=== PATIENT | female | born 1945 | race Asian ===

== ENCOUNTER 2020-05-07 05:54 | Inpatient (IN) | payer MEDICAID ==
[2020-05-03 10:39] LABS: APPEARANCE,URINE CLEAR; BILIRUBIN, URINE NEGATIVE (NEGATIVE); COLOR,URINE PALE YELLOW; GLUCOSE, URINE (UA) NEGATIVE (NEGATIVE); KETONES,URINE NEGATIVE (NEGATIVE); LEUKOCYTE ESTERASE ,URINE 1+ (NEGATIVE); NITRITE,URINE NEGATIVE (NEGATIVE); PH,URINE 5 (4.5-8.0); PROTEIN,URINE NEGATIVE (NEGATIVE); UROBILINOGEN,URINE NORMAL MG/DL (0.0-1.0)
[2020-05-03 10:49] LABS: BASOPHILS % (AUTO) 0.8 % (0.0-2.0); EOSINOPHILS % (AUTO) 2.2 % (0.0-3.0); HEMATOCRIT 44.6 % (37.0-47.0); HEMOGLOBIN 15.7 G/DL (12.0-16.0); LYMPHOCYTES % (AUTO) 46.9 % (20.0-45.0); MEAN CORPUSCULAR VOLUME 92 FL (80-99); NEUTROPHILS % (AUTO) 42.1 % (45.0-75.0); PLATELET COUNT 255 K/UL (150-450); RED BLOOD COUNT 4.85 M/UL (4.20-5.40); WHITE BLOOD COUNT 6.4 K/UL (4.8-10.8)
[2020-05-03 11:05] LABS: ANION GAP 7 mmol/L (5-15); BLOOD UREA NITROGEN 15 mg/dL (7-18); CALCIUM 9.5 MG/DL (8.5-10.1); CARBON DIOXIDE 29 MMOL/L (21-32); CHLORIDE 104 MMOL/L (98-107); CREATININE 0.8 MG/DL (0.55-1.30); POTASSIUM 3.8 MMOL/L (3.5-5.1); SODIUM 139 MMOL/L (136-145)
--- NOTE | 2020-05-03 16:38 | Diagnostic Imaging Report ---
Indication: Cough Technique: One view of the chest Comparison: none Findings: Lungs and pleural spaces are clear. Heart size is normal. There is evidence of prior mid thoracic vertebral augmentation procedures Impression: No acute process
--- NOTE | 2020-05-06 14:15 | Pre-op HX & Phy Repo 2 SIG ---
DATE OF ADMISSION: 05/07/2020 DATE OF SURGERY: Scheduled for surgery May 07, 2020. HISTORY OF PRESENT ILLNESS: The patient is a 74-year-old female in overall stable health, who recently noticed a right breast mass. Imaging revealed a multilobulated mass extending over 7 cm. Multiple core biopsies were performed in March at 9 o'clock of the right breast revealing papillary carcinoma, at 8 o'clock 7 cm from the nipple papillary carcinoma, and at 8 o'clock 4 cm from the nipple papillary carcinoma. The lesion was ER and GA positive, HER2 negative, with KI-67 18%. . She was seen by Medical Oncology, who obtained PET-CT scan, bone scan and breast MRI which were all negative except for the known cancer in the right breast. While she stated she had occasional shortness of breath, it was felt that she should proceed with surgical approach with modified radical mastectomy at this time, and there was no indication for preoperative neoadjuvant chemotherapy. PAST MEDICAL HISTORY/MEDICATIONS: Statin for cholesterol. ALLERGIES: Fish. OPERATIONS: Arm and shoulder surgery. REVIEW OF SYSTEMS: She is nulliparous. PHYSICAL EXAMINATION: GENERAL: The patient is 5 feet 2 inches and 146 pounds. VITAL SIGNS: Stable. HEENT: Within normal limits. LUNGS: Clear. HEART: Regular rhythm. BREASTS: Moderately large and ptotic. The left breast is unremarkable. The right breast has a large 7 to 8 cm central mass, which is not fixed to the underlying chest wall. There is no palpable axillary or supraclavicular lymphadenopathy. ABDOMEN: Soft. PELVIC: Per primary care. RECTAL: Per primary care. EXTREMITIES: Without edema. NEUROLOGIC: Physiologic. IMPRESSION: Locally advanced papillary carcinoma, right breast. PLAN: Right modified radical mastectomy. DISCUSSION: I have had a full discussion with the patient regarding the nature of her condition, the nature of the surgery, indications, alternatives, options, and risks including bleeding, infection, necrosis of flap, need for additional treatment based on final pathology including pathology of the lymph nodes, scarring, distortion of the chest wall, etc. All questions have been answered. The patient understands and agrees to proceed. Remy Barrera M.D. DR: OLENA JOB#: [id number] CC: NICOLE
[2020-05-07] VITALS (14 sets, daily range): BP systolic 102–144; BP diastolic 60–78
[~2020-05-07] VITALS: Ht 149.9 cm; Wt 65.8 kg
[~2020-05-07 05:54] MED LIST: [UNRECOGNIZED DRUG - OTHER]
[2020-05-07] MEDS ORDERED: fentaNYL 100 mcg/2 mL IV ONE (07:25)
[2020-05-07] MEDS ORDERED: Midazolam 2mg/2ml Inj ONE (07:25)
[2020-05-07] MEDS ORDERED: Rocuronium Bromide 50mg/5ml Inj IV ONE (07:31)
[2020-05-07] MEDS ORDERED: Succinylcholine 20mg/ml 10ml vial ONE (07:31)
[2020-05-07] MEDS ORDERED: Lidocaine 1% MPF 10mg/ml 5ml ONE (07:35)
[2020-05-07] MEDS ORDERED: Sterile Water Irrig 1000ml IRRIG ONE (07:58)
[2020-05-07] MEDS ORDERED: LR 1000ml ONE (07:58)
[2020-05-07] MEDS ORDERED: NS Irrig 1000ml ONE (07:58)
[2020-05-07] MEDS ORDERED: Neostigmine 1mg/ml 10ml Inj ONE (08:00)
[2020-05-07] MEDS ORDERED: Bacitracin Irrig 1000ml IRRIG ONE (08:00)
--- NOTE | 2020-05-07 08:01 | Anethesia Preoperative Eval ---
Anesthesia Pre-op PMH/ROS General Date of Evaluation: May 07, 2020 Time of Evaluation: 07:58 Anesthesiologist: Abraham ASA Score: ASA 2 Mallampati Score Class I : Soft palate, uvula, fauces, pillars visible Class II: Soft palate, uvula, fauces visible Class III: Soft palate, base of uvula visible Class IV: Only hard plate visible Mallampati Classification: Class II Surgeon: Holly Diagnosis: R breast CA Surgical Procedure: r MASTECTOMY Anesthesia History: none Family History: no anesthesia problems Allergies: Coded Allergies: White Fish (Verified Allergy, Unknown, Rash, 05/07/20) Medications: see eMAR Patient NPO?: Yes Past Medical History Cardiovascular: Denies: HTN, CAD, PA, valve dz, arrhythmia, other Pulmonary: Denies: asthma, COPD, LILLIANA, other Gastrointestinal/Genitourinary: Reports: GERD; Denies: CRI, ESRD, other Neurologic/Psychiatric: Reports: depression/anxiety; Denies: dementia, CVA, TIA, other Endocrine: Denies: DM, hypothyroidism, steroids, other HEENT: Denies: cataract (L), cataract (R), glaucoma, [place] (L), [place] (R), other Hematology/Immune: Denies: anemia, DVT, bleeding disorder, other Musculoskeletal/Integumentary: Reports: OA; Denies: RA, DJD, DDD, edema, other PMH Narrative: as above PSxH Narrative: Kyphoplasty Anesthesia Pre-op Phys. Exam Physician Exam Last Vital Signs Date Time Temp Pulse Resp B/P (MAP) Pulse Ox O2 Delivery O2 Flow Rate FiO2 05/07/20 06:36 Room Air 05/07/20 06:30 97.3 78 18 144/78 (100) 96 Constitutional: NAD Neurologic: CN 2-12 intact Cardiovascular: RRR, no M/R/G Respiratory: CTA Gastrointestinal: S/NT/ND Airway Exam Mallampati Score: Class II MO: full Neck: flexible ROM: full Teeth: intact Dentures: no upper, no lower Anesthesia Pre-op A/P Labs see chart Studies Pre-op Studies: EKG - NSR Risk Assessment & Plan Assessment: ASA 2 Plan: GA with ETT Status Change Before Surgery: No Pre-Antibiotics Drug: Ancef 1gr Given Within 1 Hr of Incision: Yes Time Given: 08:18 Haroldo Rosario MD May 07, 2020 08:01
--- NOTE | 2020-05-07 08:10 | Pre-Procedure Note/Attestation ---
Pre-Procedure Note/Attestation Complete Prior to Procedure Planned Procedure: right Procedure Narrative: right modified radical mastectomy Indications for Procedure Pre-Operative Diagnosis: papillary carcinoma right breast Attestation I attest that I discussed the nature of the procedure; its benefits; risks and complications; and alternatives (and the risks and benefits of such alternati ves), prior to the procedure, with the patient (or the patient's legal claims representative). I attest that, if there was a reasonable possibility of needing a blood transfusion, the patient (or the patient's legal claims representative) was given the [facility] standardized written summary, pursuant to the Derik March Arb Blood Safety Act ([place] Health and Safety Code # 1645, as amended). I attest that I re-evaluated the patient just prior to the surgery and that there has been no change in the patient's H&P, except as documented below:none Remy Barrera MD May 07, 2020 08:10
[2020-05-07] MEDS ORDERED: Hydromorphone 0.5mg/0.5ml inj IVP PRN (08:15)
[2020-05-07] MEDS ORDERED: DiphenhydrAMINE 50mg/ml Inj IVP PRN (08:15)
[2020-05-07] MEDS ORDERED: Acetaminophen (Non formulary) 100 ML IV ONE (08:15)
[2020-05-07] MEDS ORDERED: LR 1000ml 1,000 ML IVLG SCH (08:15)
[2020-05-07] MEDS ORDERED: Ketorolac 30mg Inj IV PRN (08:15)
[2020-05-07] MEDS ORDERED: Morphine Sulfate 10mg/ml Inj ONE (08:47)
[2020-05-07] MEDS ORDERED: Glycopyrrolate 0.2mg/ml 1ml Vial ONE (08:50)
[2020-05-07] MEDS ORDERED: Sodium Chloride 10ml vial INJ ONE (08:50)
--- NOTE | 2020-05-07 09:56 | Brief Operative Note ---
Immediate Post Operative Note Operative Note Pre-op Diagnosis: papillary carcinoma right breast Procedure: right modified radical mastectomy Post-op Diagnosis: same Post-op Diagnosis: same as pre-op Findings: consistent w/pre-op dx studies Surgeon: kayla Anesthesiologist: fidel Anesthesia: general Specimen: yes - right breast and axillary nodes Complications: none Condition: stable Fluids: see anesthesia record Estimated Blood Loss: minimal Drains: DEMI Implant(s) used?: No Remy Barrera MD May 07, 2020 09:56
[2020-05-07] MEDS ORDERED: HYDROcodone/Acetamin 5/325 tab ORAL PRN (10:00)
[2020-05-07] MEDS ORDERED: Metoclopramide 10mg/2ml Inj IVP PRN (10:00)
[2020-05-07] MEDS ORDERED: HYDROmorphone 1mg/ml Carpuject SUBQ PRN (10:00)
[2020-05-07] MEDS ORDERED: Bacitracin 50000 Units Vial ONE (10:02)
--- NOTE | 2020-05-07 10:11 | Immediate Post-Op Evaluation ---
Immediate Post-Op Evalulation Immediate Post-Op Evalulation Procedure: R modified radical mastectomy Date of Evaluation: May 07, 2020 Time of Evaluation: 10:10 IV Fluids: 1000 Blood Products: none Estimated Blood Loss: 100 Urinary Output: n/a Blood Pressure Systolic: 109 Blood Pressure Diastolic: 68 Pulse Rate: 65 Respiratory Rate: 20 O2 Sat by Pulse Oximetry: 99 Temperature (Fahrenheit): 97.6 Pain Score (1-10): 1 Nausea: No Vomiting: No Complications none Patient Status: reacts, patent, extubated, none Hydration Status: adequate Haroldo Rosario MD May 07, 2020 10:11
--- NOTE | 2020-05-07 10:30 | Operative Note - Dictated ---
DATE OF OPERATION: 05/07/2020 SURGEON: Remy Barrera MD. HEALTH CARE ADMINISTRATOR: None. ANESTHESIOLOGIST: Haroldo Rosario MD. TYPE OF ANESTHESIA: General endotracheal. PREOPERATIVE DIAGNOSIS: Papillary carcinoma, right breast. POSTOPERATIVE DIAGNOSIS: Papillary carcinoma, right breast. OPERATION PERFORMED: Right modified radical mastectomy. DESCRIPTION OF PROCEDURE: The patient was taken to the operating room and under general anesthesia with sequential compression device stockings in place, she was prepped and draped in the usual fashion. The outline of the breast was marked from the second rib, sternum, costal margin and latissimus dorsi. A transversely oriented elliptical incision was made and flaps dissected circumferentially. The breast was resected including the pectoralis fascia, although there was no invasion of the pectoralis muscle. [place] nodes were included with the axillary tail and using the [employer] vessel sealing electrosurgical device the specimen was given off the field, to the pathologist to confirm grossly normal clear margins and axillary nodes present. The field was irrigated with sterile water, followed by antibiotic solution and hemostasis carefully achieved with cautery through separate stab incisions inferiorly and lateral. Two 19 mm round Kelton-Garcia drains were placed, one into the axilla and one under the flaps. They were sutured to the skin with 2-0 nylon skin sutures. The incision was closed with continuous 2-0 Vicryl deep dermal subcutaneous sutures and the skin closed with jd. Dry sterile dressings were applied. Final sponge and needle counts were correct. The patient tolerated the procedure well and left the operating room in stable condition. Remy Barrera M.D. DR: OLENA JOB#: [id number] CC:
[2020-05-07] MEDS ORDERED: D5 1/2NS w/KCl 20mEq 1,000 ML IV SCH (14:00)
[2020-05-07] MEDS: ceFAZolin sod 1 GM in D5W 55 ML IV SCH ×2 (15:40→23:52)
[2020-05-08 04:00] VITALS: BP 131/62
[2020-05-08 08:00] VITALS: BP 135/74
--- NOTE | 2020-05-08 08:57 | General Progress Note ---
Progress Note Progress Note AVSS Ambulates to bathroom, pain controlled with po meds. Right mastectomy incision clean, flaps viable DEMI drains 75cc total since OR Imp: Stable Plan; continue in-patient care teach patient care of drains and recording outputs q4h am to hs and prn ambulate in hallways Remy Barrera MD May 08, 2020 08:57
[2020-05-08 12:00] VITALS: BP 128/60
[2020-05-08 16:00] VITALS: BP 118/71
[2020-05-08 19:35] VITALS: BP 122/75
[2020-05-09] VITALS: BP 111/62
[2020-05-09 09:00] VITALS: BP 139/79
--- NOTE | 2020-05-09 09:08 | General Progress Note ---
Progress Note Progress Note AVSS Not requiring analgesics. right mastectomy incision clean, flaps viable and well perfused Has learned care of DEMI drains DEMI output total 110cc both drains together Imp: doing well Plan: Discharge Rx none f/u 05/15 office Instructions/supplies/limitations provided/discussed Remy Barrera MD May 09, 2020 09:08
--- NOTE | 2020-05-09 15:49 | Discharge Summary ---
Discharge Summary Discharge Summary _ Date of admission: 05/07/2020 Date of discharge: 05/09/[address] Barrera History of Present Illness and Brief Hospital Course Ms. Barbosa is a 74-year-old female with past medical history of hypercholesterolemia, and right breast mass who presented to the hospital on May 07, 2020 for her scheduled right modified radical mastectomy. Of note, patient was in overall state of health, who recently noticed a right breast mass. Imaging revealed a multilobulated mass extending over 70 cm. Multiple core biopsies were performed in March, at 9 o'clock of the right breast revealing papillary carcinoma, at 8 o'clock 7 cm from the nipple papillary carcinoma, and at 8 o'clock 4 cm from the nipple papillary carcinoma. The lesion was ER and VA positive, HER 2 negative, with KI67 18%. She was seen by medical oncology, who obtained a PET CT scan, bone scan and breast MRI which were all negative except for the known cancer in the right breast. While she stated she had occasional shortness of breath, it was felt that she should proceed with surgical approach with modified radical mastectomy at this time, and there was no indication for preoperative neoadjuvant chemotherapy. The nature of the procedure; its benefits; risks and complications; and alternatives were discussed prior to the procedure with the patient. Patient expressed understanding and gave consent. On 05/07/2020 the patient was taken to the operating room. The right breast was resected including the pectoralis fascia, although there was no invasion of the pectoralis muscle. [place] nodes were included with the axillary tail and using the [employer] vessel sealing electrosurgical device the specimen was given off the field, to the pathologist to confirm grossly normal clear margins and axillary nodes present. The patient tolerated the procedure well and left the operating room in stable condition. Immediately after the surgery patient did not complain of pain, was alert and oriented x4, moving all extremities, with 2 DEMI drains intact and compressed with serosanguineous drainage. On 05/08/2020 patient ambulated to bathroom. DEMI drains were noted to have 75 cc total since since surgery. Surgical site was closely monitored for abnormal drainage, signs of infection. Dressings were changed at regular interval. On 05/09/2020 patient was medically stable for discharge home. Consultants: Anesthesiologist Dr. Rosario Discharge Condition She was discharged in stable condition, alert and oriented, ambulatory, accompanied by in a private car Discharge Activity As tolerated Final diagnoses Right breast mass s/p Right modified radical mastectomy History of hypercholesterolemia I have been assigned to dictate discharge summary for this account. I was not involved in the patient's management Héctor Maldonado May 09, 2020 15:49
== END 2020-05-09 10:50 | disposition home or self-care (01) | DRG 362 ==
LOC: SUR 05:54 → 3E 12:06
PROC: 07B50ZZ Excision of Right Axillary Lymphatic, Open Approach (ICD-10-PCS; 2020-05-07)
PROC: 0HTT0ZZ Resection of Right Breast, Open Approach (ICD-10-PCS; principal; 2020-05-07 08:00)
DX: C50.411 Malignant neoplasm of upper-outer quadrant of right female breast (principal); Z17.0 Estrogen receptor positive status [ER+]; E78.00 Pure hypercholesterolemia, unspecified
CPT/HCPCS: 36415; 71045; 80048; 81003; 85025; 85610; 85730; 93005; 94003; 94150; J2250; J2710; U0002